=== PATIENT | male | born 1970 | race Caucasian/White ===

== ENCOUNTER 2017-10-03 16:32 | Emergency (ER) | payer MEDICAID, OTHER ==
[2017-10-03] MEDS: SOD CHLORIDE 0.9% 1,000 ML IV (17:27)
[2017-10-03 17:28] LABS: ADD MAN DIFF? NO
[2017-10-03] MEDS: ONDANSETRON 4 MG INJ IV (17:28)
[2017-10-03 17:29] LABS: BASOPHIL # 0.1 10^3/ul (0.0-0.1); BASOPHILS % 0.4 % (0.0-2.0); HEMATOCRIT 44.6 % (42.0-52.0); LYMPHOCYTES # 1.5 10^3/ul (0.8-2.9); LYMPHOCYTES % 10.5 % (15.0-51.0); MEAN CORPUSCULAR HEMOGLOBIN 30.2 pg (29.0-33.0); MEAN CORPUSCULAR HGB CONC 33.6 g/dl (32.0-37.0); MEAN CORPUSCULAR VOLUME 89.9 fl (82.0-101.0); MEAN PLATELET VOLUME 11.2 fl (7.4-10.4); MONOCYTE # 0.5 10^3/ul (0.3-0.9); MONOCYTES % 3.6 % (0.0-11.0); NEUTROPHIL # 11.8 10^3/ul (1.6-7.5); NEUTROPHILS % 84.8 % (39.0-77.0); PLATELET COUNT 264 10^3/UL (140-415); RED BLOOD COUNT 4.96 10^6/ul (4.70-6.10); RED CELL DISTRIBUTION WIDTH 12.8 % (11.5-14.5)
[2017-10-03 17:29] LABS: WHITE BLOOD COUNT 13.8 10^3/ul (4.8-10.8)
[2017-10-03 17:50] LABS: INR 0.89; PROTIME 12.1 Sec (11.9-14.9); PT RATIO 0.9
[2017-10-03 18:05] LABS: ALANINE AMINOTRANSFERASE 43 IU/L (13-69); ALBUMIN 4.8 g/dl (3.3-4.9); ALBUMIN/GLOBULIN RATIO 1.23; ALKALINE PHOSPHATASE 166 IU/L (42-121); AMYLASE 60 U/L (11-123); ANION GAP 32 (8-16); ASPARTATE AMINO TRANSFERASE 30 IU/L (15-46); BILIRUBIN,INDIRECT 0.4 mg/dl (0-1.1); BILIRUBIN,TOTAL 0.4 mg/dl (0.2-1.3); BLOOD UREA NITROGEN 9 mg/dl (7-20); CALCIUM 8.7 mg/dl (8.4-10.2); CARBON DIOXIDE 11 mmol/L (21-31); CHLORIDE 100 mmol/L (97-110); CREATININE 0.86 mg/dl (0.61-1.24); LIPASE 61 U/L (23-300); POTASSIUM 4.4 mmol/L (3.5-5.1); SODIUM 139 mmol/L (135-144); TOTAL PROTEIN 8.7 g/dl (6.1-8.1)
[2017-10-03 18:11] LABS: GLUCOSE 431 mg/dl (70-220)
[2017-10-03 18:16] LABS: TROPONIN-I < 0.012 ng/ml (0.00-0.12)
[2017-10-03] MEDS: IOHEXOL 300MG/ML 150 ML BTL (18:16)
[2017-10-03] MEDS: SOD CHLORIDE 0.9% 100 ML (18:16)
[2017-10-03 19:15] LABS: ADD UMIC NO; UR ASCORBIC ACID NEGATIVE (NEGATIVE); UR BILIRUBIN (Dip) NEGATIVE (NEGATIVE); UR BLOOD (Dip) NEGATIVE (NEGATIVE); UR CLARITY CLEAR (CLEAR); UR COLOR COLORLESS (YELLOW); UR GLUCOSE (Dip) 3+ mg/dL (NEGATIVE); UR KETONES (Dip) 2+ mg/dL (NEGATIVE); UR LEUKOCYTE ESTERASE (Dip) NEGATIVE Leu/ul (NEGATIVE); UR NITRITE (Dip) NEGATIVE (NEGATIVE); UR SPECIFIC GRAVITY (Dip) 1.056 (1.003-1.030); UR TOTAL PROTEIN (Dip) NEGATIVE (NEGATIVE); UR UROBILINOGEN (Dip) NEGATIVE (NEGATIVE)
[2017-10-03] MEDS: morphine 4 MG/ML VIAL IV (19:35)
[2017-10-03] MEDS: SOD CHLORIDE 0.9% 500 ML IV (19:54)
[2017-10-03] MEDS: INSULIN REGULAR, HUMAN 100 UNIT/1 ML 3ML VIAL SC (19:54)
== END 2017-10-03 20:42 | disposition home or self-care (01) ==
LOC: FTE 16:32
DX: E11.65 Type 2 diabetes mellitus with hyperglycemia (principal); R11.10 Vomiting, unspecified; Z79.84 Long term (current) use of oral hypoglycemic drugs
CPT/HCPCS: 71046; 74177; 76705; 80053; 81003; 82150; 82962; 83690; 84484; 85025; 85610; 85730; 87400; 93005; 96374; 96375; 99285-25

== ENCOUNTER 2017-10-05 07:48 | Inpatient (IN) | payer MEDICAID ==
[2017-10-05 08:14] LABS: ADD MAN DIFF? NO
[2017-10-05 08:16] LABS: BASOPHIL # 0.2 10^3/ul (0.0-0.1); BASOPHILS % 0.7 % (0.0-2.0); HEMATOCRIT 48.4 % (42.0-52.0); HEMOGLOBIN 15.7 g/dl (14.0-18.0); LYMPHOCYTES # 2.8 10^3/ul (0.8-2.9); LYMPHOCYTES % 12.3 % (15.0-51.0); MEAN CORPUSCULAR HEMOGLOBIN 30.5 pg (29.0-33.0); MEAN CORPUSCULAR HGB CONC 32.4 g/dl (32.0-37.0); MEAN PLATELET VOLUME 11.2 fl (7.4-10.4); MONOCYTE # 1.1 10^3/ul (0.3-0.9); MONOCYTES % 4.9 % (0.0-11.0); NEUTROPHIL # 18.6 10^3/ul (1.6-7.5); NEUTROPHILS % 80.8 % (39.0-77.0); PLATELET COUNT 296 10^3/UL (140-415); RED BLOOD COUNT 5.15 10^6/ul (4.70-6.10); RED CELL DISTRIBUTION WIDTH 12.8 % (11.5-14.5)
[2017-10-05] MEDS: morphine 2 MG INJ IV (08:19)
[2017-10-05] MEDS: ONDANSETRON 4 MG INJ IV (08:19)
[2017-10-05] MEDS: SOD CHLORIDE 0.9% 1,000 ML IV ×3 (08:21→10:42)
[2017-10-05 08:37] LABS: ALANINE AMINOTRANSFERASE 34 IU/L (13-69); ALBUMIN 4.7 g/dl (3.3-4.9); ALBUMIN/GLOBULIN RATIO 1.11; ALKALINE PHOSPHATASE 206 IU/L (42-121); ASPARTATE AMINO TRANSFERASE 23 IU/L (15-46); BILIRUBIN,INDIRECT 0.1 mg/dl (0-1.1); BILIRUBIN,TOTAL 0.1 mg/dl (0.2-1.3); BLOOD UREA NITROGEN 8 mg/dl (7-20); CALCIUM 8.7 mg/dl (8.4-10.2); CHLORIDE 107 mmol/L (97-110); GLUCOSE 348 mg/dl (70-220); LIPASE 153 U/L (23-300); POTASSIUM 4.1 mmol/L (3.5-5.1); SODIUM 140 mmol/L (135-144); TOTAL PROTEIN 8.9 g/dl (6.1-8.1)
[2017-10-05 08:43] LABS: ANION GAP 32 (8-16); CARBON DIOXIDE < 5 mmol/L (21-31)
[2017-10-05 08:51] LABS: TROPONIN-I < 0.012 ng/ml (0.00-0.12)
[2017-10-05] MEDS: NA BICARBONATE 8.4% 50 ML SYG IV ×4 (08:58→15:15)
[2017-10-05] MEDS: POTASSIUM CHLORIDE 40 MEQ in SOD CHLORIDE 0.9% 250 ML IV (09:05)
[2017-10-05] MEDS ORDERED: ACCU-CHEK XX (09:30)
[2017-10-05] MEDS ORDERED: INSULIN HUMAN REGULAR 100 UNIT in SOD CHLORIDE 0.9% 99 ML IV (09:30)
[2017-10-05] MEDS ORDERED: DEXTROSE 50% 50 ML SYRINGE IV ×2 (09:30)
[2017-10-05] MEDS: INSULIN HUMAN REGULAR 100 UNIT in SOD CHLORIDE 0.9% 99 ML IV (09:36)
[2017-10-05 12:03] LABS: PHOSPHORUS 3.1 mg/dl (2.5-4.9)
[2017-10-05 12:03] LABS: Allen Test ACCEPTAB; BLOOD UREA NITROGEN 8 mg/dl (7-20); CALCIUM 7.7 mg/dl (8.4-10.2); CHLORIDE 114 mmol/L (97-110); CREATININE 0.67 mg/dl (0.61-1.24); GLUCOSE 258 mg/dl (70-220); MODE VENT - AC; MetHgb Venous 0.5 %; POTASSIUM 5.1 mmol/L (3.5-5.1); SODIUM 143 mmol/L (135-144); Site Left Radial; Venous COHb 0.5 %; Venous Fraction OxyHgb 96.2 %; Venous Oxygen Sat 97.2 mmHG (55.0-75.0); Venous Total Hemglobin 8.3 g/dl
[2017-10-05 12:08] LABS: ANION GAP 29 (8-16)
[2017-10-05 12:15] LABS: CARBON DIOXIDE < 5 mmol/L (21-31)
[2017-10-05] MEDS: LACTATED RINGER'S 1,000 ML IV (12:30)
[2017-10-05 13:42] LABS: ANION GAP 26 (8-16); BLOOD UREA NITROGEN 8 mg/dl (7-20); CALCIUM 7.5 mg/dl (8.4-10.2); CHLORIDE 113 mmol/L (97-110); CREATININE 0.65 mg/dl (0.61-1.24); GLUCOSE 233 mg/dl (70-220); SODIUM 143 mmol/L (135-144)
[2017-10-05 13:58] LABS: CARBON DIOXIDE 8 mmol/L (21-31)
[2017-10-05] MEDS: POTASSIUM CHLORIDE 100 ML IVPB ×6 (14:30→23:39)
[2017-10-05] MEDS ORDERED: DEXTROSE 5%-LR 1,000 ML IV (14:30)
[2017-10-05] MEDS: DEXTROSE 5%-0.45% NACL 1,000 ML IV (15:17)
[2017-10-05] MEDS: POTASSIUM CHLORIDE 20 MEQ in DEXTROSE 5%-LR 1,000 ML IV ×2 (16:00→22:50)
[2017-10-05 16:11] LABS: TROPONIN-I 0.014 ng/ml (0.00-0.12)
[2017-10-05] MEDS: AZITHROMYCIN 250 MG TAB PO (17:05)
[2017-10-05 18:17] LABS: ANION GAP 19 (8-16); BLOOD UREA NITROGEN 6 mg/dl (7-20); CALCIUM 7.3 mg/dl (8.4-10.2); CARBON DIOXIDE 16 mmol/L (21-31); CHLORIDE 115 mmol/L (97-110); CREATININE 0.61 mg/dl (0.61-1.24); GLUCOSE 137 mg/dl (70-220); SODIUM 147 mmol/L (135-144)
[2017-10-05 18:22] LABS: POTASSIUM 2.6 mmol/L (3.5-5.1)
[2017-10-05] MEDS: ACCU-CHEK XX ×7 (18:44→23:10)
[2017-10-05] MEDS: POTASSIUM CHLORIDE (SR) 20 MEQ TAB PO ×2 (19:01→20:00)
[2017-10-05 21:49] LABS: ANION GAP 14 (8-16); BLOOD UREA NITROGEN 6 mg/dl (7-20); CALCIUM 7.4 mg/dl (8.4-10.2); CARBON DIOXIDE 18 mmol/L (21-31); CHLORIDE 111 mmol/L (97-110); CREATININE 0.62 mg/dl (0.61-1.24); GLUCOSE 176 mg/dl (70-220); SODIUM 140 mmol/L (135-144)
[2017-10-06 01:01] LABS: ANION GAP 10 (8-16); BLOOD UREA NITROGEN 5 mg/dl (7-20); CALCIUM 7.8 mg/dl (8.4-10.2); CARBON DIOXIDE 21 mmol/L (21-31); CHLORIDE 118 mmol/L (97-110); GLUCOSE 146 mg/dl (70-220); POTASSIUM 3.6 mmol/L (3.5-5.1); SODIUM 145 mmol/L (135-144)
[2017-10-06] MEDS: ACCU-CHEK XX ×8 (01:06→06:58)
[2017-10-06] MEDS: INSULIN HUMAN REGULAR 100 UNIT in SOD CHLORIDE 0.9% 99 ML IV (01:48)
[2017-10-06 05:27] LABS: ANION GAP 12 (8-16); BLOOD UREA NITROGEN 5 mg/dl (7-20); CARBON DIOXIDE 20 mmol/L (21-31); CHLORIDE 117 mmol/L (97-110); CREATININE 0.48 mg/dl (0.61-1.24); GLUCOSE 169 mg/dl (70-220); POTASSIUM 3.5 mmol/L (3.5-5.1); SODIUM 145 mmol/L (135-144)
[2017-10-06 05:35] LABS: TROPONIN-I < 0.012 ng/ml (0.00-0.12)
[2017-10-06] MEDS: D5-0.2 NACL + KCL 20 MEQ 1,000 ML IV (06:13)
[2017-10-06 09:59] LABS: ANION GAP 13 (8-16); BLOOD UREA NITROGEN 4 mg/dl (7-20); CALCIUM 7.9 mg/dl (8.4-10.2); CARBON DIOXIDE 21 mmol/L (21-31); CHLORIDE 112 mmol/L (97-110); GLUCOSE 138 mg/dl (70-220); POTASSIUM 3.1 mmol/L (3.5-5.1); SODIUM 143 mmol/L (135-144)
[2017-10-06] MEDS: POTASSIUM CHLORIDE 100 ML IVPB ×3 (11:08→12:30)
[2017-10-06] MEDS ORDERED: GLUCAGON 1 MG INJ IM (11:30)
[2017-10-06] MEDS ORDERED: DEXTROSE 50% 50 ML SYRINGE IV ×2 (11:30)
[2017-10-06] MEDS ORDERED: GLUCOSE GEL 15 GRAM TUBE PO ×2 (11:30)
[2017-10-06] MEDS ORDERED: GLUCOSE GEL 15 GRAM TUBE BUCCAL (11:30)
[2017-10-06] MEDS: INSULIN GLARGINE [LANtus] 3 ML PEN SC (12:32)
[2017-10-06] MEDS: INSULIN ASPART [NOVOLOG] 3 ML PEN SC ×5 (12:33→20:34)
[2017-10-06 13:31] LABS: ANION GAP 12 (8-16); BLOOD UREA NITROGEN 4 mg/dl (7-20); CALCIUM 7.8 mg/dl (8.4-10.2); CARBON DIOXIDE 22 mmol/L (21-31); CHLORIDE 109 mmol/L (97-110); CREATININE 0.56 mg/dl (0.61-1.24); GLUCOSE 122 mg/dl (70-220); POTASSIUM 3.1 mmol/L (3.5-5.1); SODIUM 140 mmol/L (135-144)
[2017-10-06] MEDS: POTASSIUM CHLORIDE (SR) 20 MEQ TAB PO ×2 (16:29→21:38)
[2017-10-06] MEDS: AZITHROMYCIN 250 MG TAB PO (17:24)
[2017-10-06 19:01] LABS: ANION GAP 10 (8-16); BLOOD UREA NITROGEN 4 mg/dl (7-20); CALCIUM 8.3 mg/dl (8.4-10.2); CARBON DIOXIDE 24 mmol/L (21-31); CHLORIDE 108 mmol/L (97-110); CREATININE 0.48 mg/dl (0.61-1.24); GLUCOSE 97 mg/dl (70-220); POTASSIUM 3.2 mmol/L (3.5-5.1); SODIUM 139 mmol/L (135-144)
[2017-10-06 21:12] LABS: ANION GAP 12 (8-16); BLOOD UREA NITROGEN 5 mg/dl (7-20); CALCIUM 8.1 mg/dl (8.4-10.2); CARBON DIOXIDE 24 mmol/L (21-31); CHLORIDE 104 mmol/L (97-110); CREATININE 0.49 mg/dl (0.61-1.24); GLUCOSE 75 mg/dl (70-220); SODIUM 137 mmol/L (135-144)
[2017-10-06 21:15] LABS: POTASSIUM 2.9 mmol/L (3.5-5.1)
[2017-10-06 21:40] LABS: MAGNESIUM 1.9 mg/dl (1.7-2.5)
[2017-10-07] MEDS: ACETAMINOPHEN 325 MG TAB PO ×2 (00:45→21:40)
[2017-10-07 01:25] LABS: ANION GAP 10 (8-16); BLOOD UREA NITROGEN 4 mg/dl (7-20); CALCIUM 8.4 mg/dl (8.4-10.2); CARBON DIOXIDE 26 mmol/L (21-31); CHLORIDE 104 mmol/L (97-110); CREATININE 0.54 mg/dl (0.61-1.24); GLUCOSE 145 mg/dl (70-220); POTASSIUM 3.5 mmol/L (3.5-5.1); SODIUM 136 mmol/L (135-144)
[2017-10-07] MEDS: ACCU-CHEK XX ×3 (02:00→21:00)
[2017-10-07 07:32] LABS: ANION GAP 12 (8-16); BLOOD UREA NITROGEN 4 mg/dl (7-20); CARBON DIOXIDE 23 mmol/L (21-31); CHLORIDE 103 mmol/L (97-110); CREATININE 0.49 mg/dl (0.61-1.24); GLUCOSE 195 mg/dl (70-220); POTASSIUM 3.4 mmol/L (3.5-5.1); SODIUM 135 mmol/L (135-144)
[2017-10-07] MEDS: INSULIN ASPART [NOVOLOG] 3 ML PEN SC ×7 (08:14→20:37)
[2017-10-07] MEDS: INSULIN GLARGINE [LANtus] 3 ML PEN SC (08:15)
[2017-10-07 09:38] LABS: ANION GAP 15 (8-16); BLOOD UREA NITROGEN 4 mg/dl (7-20); CALCIUM 8.4 mg/dl (8.4-10.2); CARBON DIOXIDE 24 mmol/L (21-31); CHLORIDE 101 mmol/L (97-110); CREATININE 0.56 mg/dl (0.61-1.24); GLUCOSE 226 mg/dl (70-220); POTASSIUM 3.5 mmol/L (3.5-5.1); SODIUM 136 mmol/L (135-144)
[2017-10-07] MEDS: POTASSIUM CHLORIDE (SR) 20 MEQ TAB PO (11:18)
[2017-10-07] MEDS: ONDANSETRON 4 MG INJ IV (11:18)
[2017-10-07 14:10] LABS: ANION GAP 10 (8-16); BLOOD UREA NITROGEN 7 mg/dl (7-20); CALCIUM 8.3 mg/dl (8.4-10.2); CARBON DIOXIDE 27 mmol/L (21-31); CHLORIDE 103 mmol/L (97-110); CREATININE 0.63 mg/dl (0.61-1.24); GLUCOSE 187 mg/dl (70-220); POTASSIUM 3.9 mmol/L (3.5-5.1); SODIUM 136 mmol/L (135-144)
[2017-10-07] MEDS: AZITHROMYCIN 250 MG TAB PO (17:32)
[2017-10-07 19:09] LABS: ANION GAP 13 (8-16); BLOOD UREA NITROGEN 10 mg/dl (7-20); CALCIUM 8.3 mg/dl (8.4-10.2); CARBON DIOXIDE 25 mmol/L (21-31); CHLORIDE 99 mmol/L (97-110); CREATININE 0.65 mg/dl (0.61-1.24); GLUCOSE 196 mg/dl (70-220); POTASSIUM 3.8 mmol/L (3.5-5.1); SODIUM 133 mmol/L (135-144)
[2017-10-08 00:20] LABS: ANION GAP 10 (8-16); BLOOD UREA NITROGEN 12 mg/dl (7-20); CALCIUM 8.4 mg/dl (8.4-10.2); CARBON DIOXIDE 28 mmol/L (21-31); CHLORIDE 101 mmol/L (97-110); CREATININE 0.65 mg/dl (0.61-1.24); GLUCOSE 208 mg/dl (70-220); SODIUM 135 mmol/L (135-144)
[2017-10-08 05:19] LABS: ADD MAN DIFF? NO
[2017-10-08 05:21] LABS: BASOPHILS % 0.5 % (0.0-2.0); EOSINOPHILS % 0.5 % (0.0-7.0); HEMATOCRIT 35.4 % (42.0-52.0); HEMOGLOBIN 12.6 g/dl (14.0-18.0); LYMPHOCYTES % 33.8 % (15.0-51.0); MEAN CORPUSCULAR HEMOGLOBIN 30.7 pg (29.0-33.0); MEAN CORPUSCULAR HGB CONC 35.6 g/dl (32.0-37.0); MEAN CORPUSCULAR VOLUME 86.1 fl (82.0-101.0); MEAN PLATELET VOLUME 11.1 fl (7.4-10.4); MONOCYTE # 0.3 10^3/ul (0.3-0.9); MONOCYTES % 5.3 % (0.0-11.0); NEUTROPHIL # 3.6 10^3/ul (1.6-7.5); NEUTROPHILS % 59.4 % (39.0-77.0); PLATELET COUNT 192 10^3/UL (140-415); RED BLOOD COUNT 4.11 10^6/ul (4.70-6.10); RED CELL DISTRIBUTION WIDTH 12.5 % (11.5-14.5)
[2017-10-08 05:48] LABS: ALANINE AMINOTRANSFERASE 28 IU/L (13-69); ALKALINE PHOSPHATASE 97 IU/L (42-121); ANION GAP 11 (8-16); ASPARTATE AMINO TRANSFERASE 11 IU/L (15-46); BILIRUBIN,INDIRECT 0.3 mg/dl (0-1.1); BILIRUBIN,TOTAL 0.3 mg/dl (0.2-1.3); BLOOD UREA NITROGEN 9 mg/dl (7-20); CALCIUM 8.4 mg/dl (8.4-10.2); CARBON DIOXIDE 27 mmol/L (21-31); CHLORIDE 105 mmol/L (97-110); GLUCOSE 165 mg/dl (70-220); POTASSIUM 3.6 mmol/L (3.5-5.1); SODIUM 139 mmol/L (135-144); TOTAL PROTEIN 6.3 g/dl (6.1-8.1)
[2017-10-08] MEDS: ACCU-CHEK XX ×2 (07:30→11:30)
[2017-10-08] MEDS: INSULIN ASPART [NOVOLOG] 3 ML PEN SC ×4 (08:07→11:56)
[2017-10-08] MEDS: INSULIN GLARGINE [LANtus] 3 ML PEN SC (08:08)
[2017-10-08] MEDS ORDERED: INSULIN ASPART [NOVOLOG] 3 ML PEN SC (17:35)
[2017-10-09] MEDS ORDERED: INSULIN GLARGINE [LANtus] 3 ML PEN SC (08:00)
== END 2017-10-08 16:38 | disposition home or self-care (01) | DRG 639 ==
LOC: PP2 10-06 19:22 → E/R 07:48 → ICU 09:13
DX: E11.10 Type 2 diabetes mellitus with ketoacidosis without coma (principal); E87.6 Hypokalemia; K04.7 Periapical abscess without sinus; Z79.84 Long term (current) use of oral hypoglycemic drugs
CPT/HCPCS: 36415; 70450; 71045; 80048; 80053; 82803; 82962; 83036; 83690; 83735; 84100; 84484; 85025; 87040; 87081; 93005; 93306; 96374; 96375; 96376; 99291-25

== ENCOUNTER 2018-03-11 03:44 | Emergency (ER) | payer MEDICAID ==
[2018-03-11] MEDS: DIPHENHYDRAMINE 50 MG INJ IM (04:05)
[2018-03-11] MEDS: DEXAMETHASONE 10 MG/ML 1 ML INJ IM (04:05)
[2018-03-11] MEDS: FAMOTIDINE 20 MG TAB PO (04:05)
== END 2018-03-11 04:23 | disposition home or self-care (01) ==
LOC: FTE 03:44
DX: B86 Scabies (principal); E11.9 Type 2 diabetes mellitus without complications; L50.9 Urticaria, unspecified; Z79.4 Long term (current) use of insulin
CPT/HCPCS: 96372; 99284-25

== ENCOUNTER 2018-03-21 22:28 | Emergency (ER) | payer MEDICAID | END 2018-03-21 23:18 | disposition home or self-care (01) | LOC: FTE 22:28 | DX: J20.9 Acute bronchitis, unspecified (principal); R21 Rash and other nonspecific skin eruption; E11.9 Type 2 diabetes mellitus without complications; Z79.4 Long term (current) use of insulin | CPT/HCPCS: 99283; Z7502 ==

== ENCOUNTER 2018-05-20 19:13 | Inpatient (IN) | payer MEDICAID ==
[2018-05-20 19:39] LABS: ADD MAN DIFF? NO
[2018-05-20 19:41] LABS: BASOPHIL # 0.1 10^3/ul (0.0-0.1); BASOPHILS % 0.8 % (0.0-2.0); EOSINOPHILS % 0.1 % (0.0-7.0); HEMATOCRIT 44.3 % (42.0-52.0); HEMOGLOBIN 14.8 g/dl (14.0-18.0); LYMPHOCYTES # 1.6 10^3/ul (0.8-2.9); LYMPHOCYTES % 22.2 % (15.0-51.0); MEAN CORPUSCULAR HEMOGLOBIN 29.4 pg (29.0-33.0); MEAN CORPUSCULAR HGB CONC 33.4 g/dl (32.0-37.0); MEAN CORPUSCULAR VOLUME 88.1 fl (82.0-101.0); MEAN PLATELET VOLUME 11.3 fl (7.4-10.4); MONOCYTE # 0.3 10^3/ul (0.3-0.9); MONOCYTES % 4.2 % (0.0-11.0); NEUTROPHIL # 5.2 10^3/ul (1.6-7.5); NEUTROPHILS % 72.3 % (39.0-77.0); PLATELET COUNT 218 10^3/UL (140-415); RED BLOOD COUNT 5.03 10^6/ul (4.70-6.10); RED CELL DISTRIBUTION WIDTH 12.6 % (11.5-14.5)
[2018-05-20 19:41] LABS: WHITE BLOOD COUNT 7.2 10^3/ul (4.8-10.8)
[2018-05-20] MEDS: ONDANSETRON 4 MG INJ IV (19:44)
[2018-05-20] MEDS: SOD CHLORIDE 0.9% 600 ML IV (19:44)
[2018-05-20 19:54] LABS: ADD UMIC YES; UR ASCORBIC ACID NEGATIVE (NEGATIVE); UR BILIRUBIN (Dip) NEGATIVE (NEGATIVE); UR BLOOD (Dip) NEGATIVE (NEGATIVE); UR CLARITY CLEAR (CLEAR); UR COLOR STRAW (YELLOW); UR GLUCOSE (Dip) 3+ mg/dL (NEGATIVE); UR KETONES (Dip) 2+ mg/dL (NEGATIVE); UR LEUKOCYTE ESTERASE (Dip) NEGATIVE Leu/ul (NEGATIVE); UR NITRITE (Dip) NEGATIVE (NEGATIVE); UR RBC 0 /HPF (0-5); UR SPECIFIC GRAVITY (Dip) 1.033 (1.003-1.030); UR TOTAL PROTEIN (Dip) 1+ mg/dl (NEGATIVE); UR UROBILINOGEN (Dip) NEGATIVE (NEGATIVE); UR WBC 0 /HPF (0-5)
[2018-05-20 19:58] LABS: ANION GAP 20 (5-13); BLOOD UREA NITROGEN 11 mg/dl (7-20); CALCIUM 8.5 mg/dl (8.4-10.2); CHLORIDE 106 mmol/L (97-110); CREATININE 0.85 mg/dl (0.61-1.24); Estimated GFR > 60 mL/min (>60); GLUCOSE 291 mg/dl (70-220); MAGNESIUM 2.3 mg/dl (1.7-2.5); PHOSPHORUS 2.8 mg/dl (2.5-4.9); SODIUM 136 mmol/L (135-144)
[2018-05-20 20:26] LABS: CARBON DIOXIDE 10 mmol/L (21-31)
[2018-05-20] MEDS ORDERED: SOD CHLORIDE 0.9% 1,000 ML IV (20:36)
[2018-05-20] MEDS ORDERED: POTASSIUM CHLORIDE 40 MEQ in SOD CHLORIDE 0.9% 1,000 ML IV (20:36)
[2018-05-20] MEDS ORDERED: SODIUM CHLORIDE 23.4% 77 MEQ in DEXTROSE 10% 1,000 ML IV (20:36)
[2018-05-20 20:59] LABS: MODE ROOM AIR; MetHgb Venous 0.1 %; Sample Type Blood venous; Site VENOUS LINE; Venous COHb 0.6 %; Venous Fraction OxyHgb 68.1 %; Venous Oxygen Sat 68.6 mmHG (55.0-75.0); Venous Total Hemglobin 14.6 g/dl
[2018-05-20] MEDS ORDERED: DEXTROSE 50% 50 ML SYRINGE IV ×2 (21:00)
[2018-05-20] MEDS ORDERED: HEPARIN 5,000 UNIT/0.5 ML VIAL (21:29)
[2018-05-20] MEDS ORDERED: BISACODYL (EC) 5 MG TAB PO (21:30)
[2018-05-20] MEDS ORDERED: IPRATROPIUM (NEB) 0.5 MG/2.5 ML AMP NEB (21:30)
[2018-05-20] MEDS ORDERED: ALBUTEROL 0.083% (NEB) 2.5 MG/3 ML AMP NEB (21:30)
[2018-05-20] MEDS ORDERED: morphine 2 MG INJ IV (21:30)
[2018-05-20] MEDS ORDERED: DOCUSATE SODIUM 100 MG CAP PO (21:30)
[2018-05-20] MEDS: morphine 4 MG/ML VIAL IV (21:31)
[2018-05-20] MEDS: LACTATED RINGER'S 600 ML IV (21:31)
[2018-05-20] MEDS: HEPARIN 5,000 UNIT/1 ML VIAL SC (21:32)
[2018-05-20 22:03] LABS: MODE ROOM AIR; MetHgb Venous 0.1 %; Sample Type Blood venous; Site VENOUS LINE; Venous COHb 0.7 %; Venous Fraction OxyHgb 64.2 %; Venous Oxygen Sat 64.7 mmHG (55.0-75.0); Venous Total Hemglobin 14.6 g/dl
[2018-05-20] MEDS: SODIUM CHLORIDE 23.4% 77 MEQ, POTASSIUM CHLORIDE 30 MEQ in DEXTROSE 10% 1,000 ML IV (22:09)
[2018-05-20] MEDS: INSULIN REGULAR, HUMAN 100 UNIT in SOD CHLORIDE 0.9% 99 ML IV (22:10)
[2018-05-20 22:30] LABS: ANION GAP 19 (5-13); BLOOD UREA NITROGEN 10 mg/dl (7-20); CALCIUM 7.9 mg/dl (8.4-10.2); CARBON DIOXIDE 11 mmol/L (21-31); CHLORIDE 109 mmol/L (97-110); CREATININE 0.69 mg/dl (0.61-1.24); Estimated GFR > 60 mL/min (>60); GLUCOSE 152 mg/dl (70-220); MAGNESIUM 2.2 mg/dl (1.7-2.5); PHOSPHORUS 2.4 mg/dl (2.5-4.9); SODIUM 139 mmol/L (135-144)
[2018-05-20 23:24] LABS: HEMOGLOBIN A1C 11.2 % (0-5.9)
[2018-05-21 00:13] LABS: ETHANOL < 10.0 mg/dl (0-0)
[2018-05-21 02:07] LABS: MODE ROOM AIR; MetHgb Venous 0.1 %; Sample Type Blood venous; Site VENOUS LINE; Venous COHb 0.7 %; Venous Fraction OxyHgb 74.3 %; Venous Oxygen Sat 74.9 mmHG (55.0-75.0); Venous Total Hemglobin 12.9 g/dl
[2018-05-21 02:10] LABS: ANION GAP 15 (5-13); BLOOD UREA NITROGEN 10 mg/dl (7-20); CALCIUM 7.9 mg/dl (8.4-10.2); CARBON DIOXIDE 14 mmol/L (21-31); CHLORIDE 109 mmol/L (97-110); CREATININE 0.62 mg/dl (0.61-1.24); Estimated GFR > 60 mL/min (>60); GLUCOSE 147 mg/dl (70-220); PHOSPHORUS 1.1 mg/dl (2.5-4.9); POTASSIUM 3.2 mmol/L (3.5-5.1); SODIUM 138 mmol/L (135-144)
[2018-05-21] MEDS: POTASSIUM CHLORIDE 30 MEQ in SOD CHLORIDE 0.9% 1,000 ML IV (02:22)
[2018-05-21] MEDS: SODIUM CHLORIDE 23.4% 77 MEQ, POTASSIUM CHLORIDE 40 MEQ in DEXTROSE 10% 1,000 ML IV (03:00)
[2018-05-21] MEDS: SODIUM PHOSPHATE 20 MEQ in SOD CHLORIDE 0.9% 250 ML IVPB (03:27)
[2018-05-21 05:01] LABS: ADD MAN DIFF? NO
[2018-05-21 05:03] LABS: BASOPHILS % 0.8 % (0.0-2.0); EOSINOPHILS # 0.1 10^3/ul (0.0-0.5); EOSINOPHILS % 1.2 % (0.0-7.0); HEMATOCRIT 34.9 % (42.0-52.0); HEMOGLOBIN 12.1 g/dl (14.0-18.0); LYMPHOCYTES # 1.9 10^3/ul (0.8-2.9); LYMPHOCYTES % 37.7 % (15.0-51.0); MEAN CORPUSCULAR HEMOGLOBIN 29.9 pg (29.0-33.0); MEAN CORPUSCULAR HGB CONC 34.7 g/dl (32.0-37.0); MEAN CORPUSCULAR VOLUME 86.2 fl (82.0-101.0); MEAN PLATELET VOLUME 11.4 fl (7.4-10.4); MONOCYTE # 0.3 10^3/ul (0.3-0.9); MONOCYTES % 6.7 % (0.0-11.0); NEUTROPHIL # 2.6 10^3/ul (1.6-7.5); PLATELET COUNT 178 10^3/UL (140-415); RED BLOOD COUNT 4.05 10^6/ul (4.70-6.10); RED CELL DISTRIBUTION WIDTH 12.3 % (11.5-14.5)
[2018-05-21 05:03] LABS: WHITE BLOOD COUNT 4.9 10^3/ul (4.8-10.8)
[2018-05-21 05:38] LABS: MODE ROOM AIR; MetHgb Venous 0.1 %; Sample Type Blood venous; Site VENOUS LINE; Venous COHb 1.4 %; Venous Oxygen Sat 70.1 mmHG (55.0-75.0); Venous Total Hemglobin 12.8 g/dl
[2018-05-21 05:39] LABS: ANION GAP 10 (5-13); BLOOD UREA NITROGEN 8 mg/dl (7-20); CALCIUM 7.6 mg/dl (8.4-10.2); CARBON DIOXIDE 18 mmol/L (21-31); CHLORIDE 110 mmol/L (97-110); CREATININE 0.54 mg/dl (0.61-1.24); Estimated GFR > 60 mL/min (>60); GLUCOSE 147 mg/dl (70-220); PHOSPHORUS 1.6 mg/dl (2.5-4.9); POTASSIUM 3.3 mmol/L (3.5-5.1); SODIUM 138 mmol/L (135-144)
[2018-05-21] MEDS ORDERED: HEPARIN 5,000 UNIT/0.5 ML VIAL ×3 (06:18→20:27)
[2018-05-21] MEDS: PANTOPRAZOLE 40 MG INJ IV (06:30)
[2018-05-21] MEDS: HEPARIN 5,000 UNIT/1 ML VIAL SC ×3 (06:33→21:20)
[2018-05-21] MEDS: SODIUM CHLORIDE 23.4% 77 MEQ, POTASSIUM CHLORIDE 30 MEQ in DEXTROSE 10% 1,000 ML IV (07:45)
[2018-05-21 08:49] LABS: ANION GAP 7 (5-13); BLOOD UREA NITROGEN 6 mg/dl (7-20); CALCIUM 7.3 mg/dl (8.4-10.2); CARBON DIOXIDE 20 mmol/L (21-31); CHLORIDE 113 mmol/L (97-110); CREATININE 0.48 mg/dl (0.61-1.24); Estimated GFR > 60 mL/min (>60); GLUCOSE 134 mg/dl (70-220); POTASSIUM 3.4 mmol/L (3.5-5.1); SODIUM 140 mmol/L (135-144)
[2018-05-21] MEDS: ONDANSETRON 4 MG INJ IV (09:36)
[2018-05-21] MEDS: INSULIN GLARGINE [LANTus] (100 UNITS/ML) SYG SC (10:05)
[2018-05-21] MEDS: INSULIN ASPART [NOVOLOG] 3 ML PEN SC ×5 (12:19→21:00)
[2018-05-21] MEDS ORDERED: traMADol 50 MG TAB PO (16:00)
[2018-05-21] MEDS ORDERED: ALBUTEROL 0.083% (NEB) 2.5 MG/3 ML AMP HHN (16:00)
[2018-05-21] MEDS ORDERED: hydrOXYzine HCL 50 MG TAB PO (16:00)
[2018-05-21] MEDS: LORATADINE 10 MG TAB PO (17:19)
[2018-05-21] MEDS ORDERED: hydrOXYzine HCL 25 MG TAB PO (18:08)
[2018-05-21] MEDS: EUCERIN 113 GM CR TOP (21:13)
[2018-05-22] MEDS: ACETAMINOPHEN 650MG/20.3ML CUP PO (04:42)
[2018-05-22] MEDS ORDERED: HEPARIN 5,000 UNIT/0.5 ML VIAL ×2 (04:48→13:08)
[2018-05-22] MEDS: HEPARIN 5,000 UNIT/1 ML VIAL SC ×3 (05:58→21:09)
[2018-05-22 06:46] LABS: ADD MAN DIFF? NO
[2018-05-22 06:48] LABS: WHITE BLOOD COUNT 6.3 10^3/ul (4.8-10.8)
[2018-05-22 06:48] LABS: BASOPHILS % 0.6 % (0.0-2.0); EOSINOPHILS % 0.6 % (0.0-7.0); HEMATOCRIT 38.1 % (42.0-52.0); HEMOGLOBIN 13.5 g/dl (14.0-18.0); LYMPHOCYTES # 2.3 10^3/ul (0.8-2.9); MEAN CORPUSCULAR HEMOGLOBIN 29.6 pg (29.0-33.0); MEAN CORPUSCULAR HGB CONC 35.4 g/dl (32.0-37.0); MEAN CORPUSCULAR VOLUME 83.6 fl (82.0-101.0); MEAN PLATELET VOLUME 11.7 fl (7.4-10.4); MONOCYTE # 0.3 10^3/ul (0.3-0.9); MONOCYTES % 4.9 % (0.0-11.0); NEUTROPHIL # 3.6 10^3/ul (1.6-7.5); NEUTROPHILS % 57.6 % (39.0-77.0); PLATELET COUNT 176 10^3/UL (140-415); RED BLOOD COUNT 4.56 10^6/ul (4.70-6.10); RED CELL DISTRIBUTION WIDTH 12.5 % (11.5-14.5)
[2018-05-22 07:08] LABS: ALBUMIN 3.6 g/dl (3.3-4.9); ANION GAP 15 (5-13); BLOOD UREA NITROGEN 9 mg/dl (7-20); CALCIUM 8.5 mg/dl (8.4-10.2); CARBON DIOXIDE 19 mmol/L (21-31); CHLORIDE 102 mmol/L (97-110); CREATININE 0.67 mg/dl (0.61-1.24); GLUCOSE 141 mg/dl (70-220); PHOSPHORUS 2.9 mg/dl (2.5-4.9); SODIUM 136 mmol/L (135-144)
[2018-05-22 07:33] LABS: POTASSIUM 2.9 mmol/L (3.5-5.1)
[2018-05-22] MEDS: INSULIN ASPART [NOVOLOG] 3 ML PEN SC ×7 (08:00→21:10)
[2018-05-22] MEDS: LORATADINE 10 MG TAB PO (08:21)
[2018-05-22] MEDS: FAMOTIDINE 20 MG TAB PO (08:22)
[2018-05-22] MEDS: EUCERIN 113 GM CR TOP ×2 (08:22→21:06)
[2018-05-22] MEDS: INSULIN GLARGINE [LANTus] (100 UNITS/ML) SYG SC (08:23)
[2018-05-22 09:33] LABS: AMPHETAMINE/METHAMPHETAMINE Negative (NEGATIVE); BARBITURATES Negative (NEGATIVE); BENZODIAZEPINES Negative (NEGATIVE); CANNABINOIDS Negative (NEGATIVE); COCAINE Negative (NEGATIVE); OPIATES Negative (NEGATIVE)
[2018-05-22] MEDS: POTASSIUM CHLORIDE 100 ML IVPB ×4 (10:44→17:24)
[2018-05-22] MEDS ORDERED: morphine LIQ (10 MG/5 ML) CUP PO (22:30)
[2018-05-23 05:53] LABS: ADD MAN DIFF? NO
[2018-05-23 05:57] LABS: WHITE BLOOD COUNT 7.1 10^3/ul (4.8-10.8)
[2018-05-23 05:57] LABS: BASOPHILS % 0.3 % (0.0-2.0); EOSINOPHILS # 0.1 10^3/ul (0.0-0.5); EOSINOPHILS % 1.1 % (0.0-7.0); HEMATOCRIT 38.4 % (42.0-52.0); HEMOGLOBIN 13.6 g/dl (14.0-18.0); LYMPHOCYTES # 2.4 10^3/ul (0.8-2.9); LYMPHOCYTES % 33.7 % (15.0-51.0); MEAN CORPUSCULAR HEMOGLOBIN 29.4 pg (29.0-33.0); MEAN CORPUSCULAR HGB CONC 35.4 g/dl (32.0-37.0); MEAN CORPUSCULAR VOLUME 83.1 fl (82.0-101.0); MEAN PLATELET VOLUME 11.8 fl (7.4-10.4); MONOCYTE # 0.4 10^3/ul (0.3-0.9); MONOCYTES % 5.6 % (0.0-11.0); NEUTROPHIL # 4.2 10^3/ul (1.6-7.5); NEUTROPHILS % 59.2 % (39.0-77.0); PLATELET COUNT 172 10^3/UL (140-415); RED BLOOD COUNT 4.62 10^6/ul (4.70-6.10); RED CELL DISTRIBUTION WIDTH 12.1 % (11.5-14.5)
[2018-05-23] MEDS: HEPARIN 5,000 UNIT/1 ML VIAL SC ×2 (06:02→13:55)
[2018-05-23 07:26] LABS: ANION GAP 13 (5-13); BLOOD UREA NITROGEN 13 mg/dl (7-20); CALCIUM 9.1 mg/dl (8.4-10.2); CARBON DIOXIDE 24 mmol/L (21-31); CHLORIDE 100 mmol/L (97-110); CREATININE 0.49 mg/dl (0.61-1.24); Estimated GFR > 60 mL/min (>60); GLUCOSE 100 mg/dl (70-220); PHOSPHORUS 3.6 mg/dl (2.5-4.9); SODIUM 137 mmol/L (135-144)
[2018-05-23] MEDS: INSULIN GLARGINE [LANTus] (100 UNITS/ML) SYG SC (08:23)
[2018-05-23] MEDS: INSULIN ASPART [NOVOLOG] 3 ML PEN SC ×4 (08:24→12:53)
[2018-05-23] MEDS: LORATADINE 10 MG TAB PO (08:26)
[2018-05-23] MEDS: LINAGLIPTIN 5 MG TABLET PO (08:26)
[2018-05-23] MEDS: FAMOTIDINE 20 MG TAB PO (08:26)
[2018-05-23] MEDS: EUCERIN 113 GM CR TOP (08:26)
[2018-05-23] MEDS: POTASSIUM CHLORIDE (SR) 20 MEQ TAB PO ×2 (11:48→13:56)
== END 2018-05-23 14:35 | disposition home or self-care (01) | DRG 639 ==
LOC: 2NE 05-21 18:15 → E/R 19:13 → ICU 21:11
PROC: 4A133R1 Monitoring of Arterial Saturation, Peripheral, Percutaneous Approach (ICD-10-PCS; principal; 2018-05-20)
DX: E11.10 Type 2 diabetes mellitus with ketoacidosis without coma (principal); Z79.4 Long term (current) use of insulin; Z72.89 Other problems related to lifestyle
CPT/HCPCS: 36415; 71045; 80048; 80069; 80307; 81001; 82803; 82962; 83036; 83735; 84100; 85025; 87081; 96374; 99291-25

== ENCOUNTER 2018-09-27 00:43 | Emergency (ER) | payer MEDICAID ==
[2018-09-27 03:14] LABS: ADD MAN DIFF? NO
[2018-09-27 03:16] LABS: BASOPHILS % 0.4 % (0.0-2.0); EOSINOPHILS # 0.1 10^3/ul (0.0-0.5); EOSINOPHILS % 0.7 % (0.0-7.0); HEMATOCRIT 36.9 % (42.0-52.0); HEMOGLOBIN 12.9 g/dl (14.0-18.0); LYMPHOCYTES # 1.1 10^3/ul (0.8-2.9); LYMPHOCYTES % 10.8 % (15.0-51.0); MEAN CORPUSCULAR HEMOGLOBIN 29.9 pg (29.0-33.0); MEAN CORPUSCULAR VOLUME 85.6 fl (82.0-101.0); MEAN PLATELET VOLUME 11.4 fl (7.4-10.4); MONOCYTE # 0.7 10^3/ul (0.3-0.9); MONOCYTES % 6.9 % (0.0-11.0); NEUTROPHIL # 8.1 10^3/ul (1.6-7.5); NEUTROPHILS % 80.9 % (39.0-77.0); PLATELET COUNT 210 10^3/UL (140-415); RED BLOOD COUNT 4.31 10^6/ul (4.70-6.10)
[2018-09-27] MEDS: HYDROCODONE/APAP (5/325) TAB PO (03:16)
[2018-09-27 03:52] LABS: ALANINE AMINOTRANSFERASE 29 IU/L (13-69); ALBUMIN 3.9 g/dl (3.3-4.9); ALBUMIN/GLOBULIN RATIO 1.25; ALKALINE PHOSPHATASE 235 IU/L (42-121); ANION GAP 15 (5-13); ASPARTATE AMINO TRANSFERASE 11 IU/L (15-46); BILIRUBIN,INDIRECT 0.3 mg/dl (0-1.1); BILIRUBIN,TOTAL 0.3 mg/dl (0.2-1.3); BLOOD UREA NITROGEN 16 mg/dl (7-20); CALCIUM 9.4 mg/dl (8.4-10.2); CARBON DIOXIDE 21 mmol/L (21-31); CHLORIDE 100 mmol/L (97-110); CREATININE 0.75 mg/dl (0.61-1.24); Estimated GFR > 60 mL/min (>60); POTASSIUM 4.3 mmol/L (3.5-5.1); SODIUM 136 mmol/L (135-144)
[2018-09-27 03:54] LABS: ADD UMIC NO; UR ASCORBIC ACID NEGATIVE (NEGATIVE); UR BILIRUBIN (Dip) NEGATIVE (NEGATIVE); UR BLOOD (Dip) NEGATIVE (NEGATIVE); UR CLARITY CLEAR (CLEAR); UR COLOR COLORLESS (YELLOW); UR GLUCOSE (Dip) 3+ mg/dL (NEGATIVE); UR KETONES (Dip) 1+ mg/dL (NEGATIVE); UR LEUKOCYTE ESTERASE (Dip) NEGATIVE Leu/ul (NEGATIVE); UR NITRITE (Dip) NEGATIVE (NEGATIVE); UR SPECIFIC GRAVITY (Dip) 1.028 (1.003-1.030); UR TOTAL PROTEIN (Dip) NEGATIVE (NEGATIVE); UR UROBILINOGEN (Dip) NEGATIVE (NEGATIVE)
[2018-09-27 03:57] LABS: GLUCOSE 593 mg/dl (70-220)
[2018-09-27] MEDS: SOD CHLORIDE 0.9% 1,000 ML IV ×2 (04:07→05:21)
[2018-09-27] MEDS: INSULIN LISPRO 100 UNIT/ML VIAL SC (04:56)
== END 2018-09-27 07:02 | disposition home or self-care (01) ==
LOC: FTE 00:43
DX: L02.415 Cutaneous abscess of right lower limb (principal); E11.65 Type 2 diabetes mellitus with hyperglycemia; Z79.4 Long term (current) use of insulin
CPT/HCPCS: 36415; 76536; 80053; 81003; 82962; 85025; 96360; 96361; 96372; 99285-25

== ENCOUNTER 2018-09-30 02:30 | Emergency (ER) | payer MEDICAID ==
[2018-09-30] MEDS: LIDOCAINE 1% (MPF) 5 ML VIAL INFIL (03:56)
== END 2018-09-30 04:51 | disposition home or self-care (01) ==
LOC: FTE 02:30
DX: L02.415 Cutaneous abscess of right lower limb (principal); E11.9 Type 2 diabetes mellitus without complications; Z79.4 Long term (current) use of insulin
CPT/HCPCS: 10060; 99282-25

== ENCOUNTER 2018-10-01 13:35 | Emergency (ER) | payer MEDICAID ==
[2018-10-01] MEDS: LIDOCAINE 1% (MDV) 20 ML INJ SC (15:16)
[2018-10-01] MEDS: LIDOCAINE 1% (MPF) 5 ML VIAL INJ (16:31)
[2018-10-01] MEDS: CEFTRIAXONE 1 GM INJ IM (16:31)
== END 2018-10-01 17:53 | disposition home or self-care (01) ==
LOC: FTE 13:35
DX: L02.214 Cutaneous abscess of groin (principal); Z48.01 Encounter for change or removal of surgical wound dressing
CPT/HCPCS: 10060; 96372; 99284-25

== ENCOUNTER 2018-10-03 07:21 | Emergency (ER) | payer MEDICAID | END 2018-10-03 08:13 | disposition home or self-care (01) | LOC: FTE 07:21 | DX: Z48.01 Encounter for change or removal of surgical wound dressing (principal); E11.9 Type 2 diabetes mellitus without complications; Z79.4 Long term (current) use of insulin | CPT/HCPCS: 99281; Z7502 ==

== ENCOUNTER 2018-10-07 15:37 | Emergency (ER) | payer MEDICAID | END 2018-10-07 16:24 | disposition home or self-care (01) | LOC: E/R 15:37 | DX: Z48.01 Encounter for change or removal of surgical wound dressing (principal); E11.9 Type 2 diabetes mellitus without complications; Z79.4 Long term (current) use of insulin | CPT/HCPCS: 99281; Z7502 ==

== ENCOUNTER 2018-12-11 21:51 | Inpatient (IN) | payer MEDICAID ==
[2018-12-12 00:11] LABS: ADD MAN DIFF? NO
[2018-12-12 00:16] LABS: WHITE BLOOD COUNT 12.2 10^3/ul (4.8-10.8)
[2018-12-12 00:16] LABS: BASOPHIL # 0.1 10^3/ul (0.0-0.1); BASOPHILS % 0.4 % (0.0-2.0); EOSINOPHILS # 0.1 10^3/ul (0.0-0.5); EOSINOPHILS % 0.7 % (0.0-7.0); HEMATOCRIT 37.2 % (42.0-52.0); LYMPHOCYTES # 0.7 10^3/ul (0.8-2.9); LYMPHOCYTES % 6.1 % (15.0-51.0); MEAN CORPUSCULAR HGB CONC 34.9 g/dl (32.0-37.0); MEAN CORPUSCULAR VOLUME 88.8 fl (82.0-101.0); MEAN PLATELET VOLUME 10.8 fl (7.4-10.4); MONOCYTE # 0.6 10^3/ul (0.3-0.9); MONOCYTES % 5.3 % (0.0-11.0); NEUTROPHIL # 10.6 10^3/ul (1.6-7.5); PLATELET COUNT 296 10^3/UL (140-415); RED BLOOD COUNT 4.19 10^6/ul (4.70-6.10); RED CELL DISTRIBUTION WIDTH 12.6 % (11.5-14.5)
[2018-12-12] MEDS: SOD CHLORIDE 0.9% 500 ML IV (00:23)
[2018-12-12] MEDS: PIPER-TAZO 3.375 GM IV (PMX) 100 ML IVPB (00:25)
[2018-12-12 00:36] LABS: ALANINE AMINOTRANSFERASE 21 IU/L (13-69); ALBUMIN 3.9 g/dl (3.3-4.9); ALBUMIN/GLOBULIN RATIO 1.05; ALKALINE PHOSPHATASE 232 IU/L (42-121); ANION GAP 17 (5-13); ASPARTATE AMINO TRANSFERASE 9 IU/L (15-46); BILIRUBIN,INDIRECT 0.4 mg/dl (0-1.1); BILIRUBIN,TOTAL 0.4 mg/dl (0.2-1.3); BLOOD UREA NITROGEN 14 mg/dl (7-20); CARBON DIOXIDE 15 mmol/L (21-31); CHLORIDE 98 mmol/L (97-110); CREATININE 0.67 mg/dl (0.61-1.24); Estimated GFR > 60 mL/min (>60); LIPASE 123 U/L (23-300); POTASSIUM 4.2 mmol/L (3.5-5.1); SODIUM 130 mmol/L (135-144); TOTAL PROTEIN 7.6 g/dl (6.1-8.1)
[2018-12-12 00:45] LABS: ADD UMIC NO; UR ASCORBIC ACID NEGATIVE (NEGATIVE); UR BILIRUBIN (Dip) NEGATIVE (NEGATIVE); UR BLOOD (Dip) NEGATIVE (NEGATIVE); UR CLARITY CLEAR (CLEAR); UR COLOR COLORLESS (YELLOW); UR GLUCOSE (Dip) 3+ mg/dL (NEGATIVE); UR KETONES (Dip) 1+ mg/dL (NEGATIVE); UR LEUKOCYTE ESTERASE (Dip) NEGATIVE Leu/ul (NEGATIVE); UR NITRITE (Dip) NEGATIVE (NEGATIVE); UR SPECIFIC GRAVITY (Dip) 1.027 (1.003-1.030); UR TOTAL PROTEIN (Dip) NEGATIVE (NEGATIVE); UR UROBILINOGEN (Dip) NEGATIVE (NEGATIVE)
[2018-12-12 00:50] LABS: GLUCOSE 750 mg/dl (70-220)
[2018-12-12] MEDS ORDERED: DEXTROSE 10%/0.45% NACL 1,000 ML IV (01:03)
[2018-12-12] MEDS ORDERED: D10/0.45% NACL + KCL 40 MEQ 1,000 ML IV (01:03)
[2018-12-12] MEDS ORDERED: SOD CHLORIDE 0.9% 1,000 ML IV (01:03)
[2018-12-12] MEDS ORDERED: NS + KCL 40 MEQ 1,000 ML IV (01:03)
[2018-12-12] MEDS: LACTATED RINGER'S 640 ML IV (01:16)
[2018-12-12] MEDS ORDERED: LORAZEPAM 2 MG INJ IV (01:30)
[2018-12-12] MEDS ORDERED: ONDANSETRON 4 MG INJ IV (01:30)
[2018-12-12] MEDS ORDERED: DEXTROSE 50% 50 ML SYRINGE IV ×6 (01:30→08:00)
[2018-12-12] MEDS ORDERED: VANCOMYCIN IV PER PHARMACY XX (01:30)
[2018-12-12] MEDS ORDERED: BISACODYL (EC) 5 MG TAB PO (01:30)
[2018-12-12] MEDS ORDERED: DOCUSATE SODIUM 100 MG CAP PO (01:30)
[2018-12-12] MEDS: FAMOTIDINE 20 MG INJ IV (01:56)
[2018-12-12] MEDS: INSULIN REGULAR, HUMAN 100 UNIT in SOD CHLORIDE 0.9% 100 ML IV (02:50)
[2018-12-12] MEDS: NS + KCL 30 MEQ 1,000 ML IV (02:53)
[2018-12-12 02:55] LABS: AMPHETAMINE/METHAMPHETAMINE Negative (NEGATIVE); BARBITURATES Negative (NEGATIVE); BENZODIAZEPINES Negative (NEGATIVE); CANNABINOIDS Negative (NEGATIVE); COCAINE Negative (NEGATIVE); OPIATES Negative (NEGATIVE)
[2018-12-12 03:01] LABS: ANION GAP 12 (5-13); BLOOD UREA NITROGEN 12 mg/dl (7-20); CALCIUM 8.6 mg/dl (8.4-10.2); CARBON DIOXIDE 17 mmol/L (21-31); CHLORIDE 106 mmol/L (97-110); CREATININE 0.52 mg/dl (0.61-1.24); Estimated GFR > 60 mL/min (>60); PHOSPHORUS 2.8 mg/dl (2.5-4.9); POTASSIUM 3.9 mmol/L (3.5-5.1); SODIUM 135 mmol/L (135-144)
[2018-12-12] MEDS: VANCOMYCIN HCL 1.25 GM in SOD CHLORIDE 0.9% 250 ML IVPB (03:03)
[2018-12-12 03:06] LABS: GLUCOSE 493 mg/dl (70-220)
[2018-12-12 03:10] LABS: ETHANOL < 10.0 mg/dl (0-0)
[2018-12-12 03:23] LABS: HEMOGLOBIN A1C 12.7 % (0-5.9)
[2018-12-12] MEDS ORDERED: hydrOXYzine HCL 50 MG TAB PO (05:00)
[2018-12-12] MEDS: D10/0.45% NACL + KCL 30 MEQ 1,000 ML IV (05:03)
[2018-12-12] MEDS: ALBUTEROL 0.083% (NEB) 2.5 MG/3 ML AMP NEB ×5 (05:11→20:55)
[2018-12-12] MEDS: IPRATROPIUM (NEB) 0.5 MG/2.5 ML AMP NEB ×5 (05:11→20:56)
[2018-12-12 05:24] LABS: ADD MAN DIFF? NO
[2018-12-12 05:29] LABS: WHITE BLOOD COUNT 10.4 10^3/ul (4.8-10.8)
[2018-12-12 05:29] LABS: BASOPHIL # 0.1 10^3/ul (0.0-0.1); BASOPHILS % 0.6 % (0.0-2.0); EOSINOPHILS # 0.1 10^3/ul (0.0-0.5); EOSINOPHILS % 0.9 % (0.0-7.0); HEMATOCRIT 30.4 % (42.0-52.0); HEMOGLOBIN 10.8 g/dl (14.0-18.0); LYMPHOCYTES # 1.1 10^3/ul (0.8-2.9); LYMPHOCYTES % 10.9 % (15.0-51.0); MEAN CORPUSCULAR HEMOGLOBIN 31.1 pg (29.0-33.0); MEAN CORPUSCULAR HGB CONC 35.5 g/dl (32.0-37.0); MEAN CORPUSCULAR VOLUME 87.6 fl (82.0-101.0); MEAN PLATELET VOLUME 10.7 fl (7.4-10.4); MONOCYTE # 0.6 10^3/ul (0.3-0.9); NEUTROPHIL # 8.4 10^3/ul (1.6-7.5); PLATELET COUNT 258 10^3/UL (140-415); RED BLOOD COUNT 3.47 10^6/ul (4.70-6.10); RED CELL DISTRIBUTION WIDTH 12.5 % (11.5-14.5)
[2018-12-12] MEDS ORDERED: hydrOXYzine HCL 25 MG TAB PO (06:00)
[2018-12-12 06:42] LABS: ANION GAP 1 (5-13); BLOOD UREA NITROGEN 8 mg/dl (7-20); CALCIUM 6.5 mg/dl (8.4-10.2); CARBON DIOXIDE 15 mmol/L (21-31); CHLORIDE 125 mmol/L (97-110); CREATININE 0.37 mg/dl (0.61-1.24); Estimated GFR > 60 mL/min (>60); GLUCOSE 193 mg/dl (70-220); MAGNESIUM 1.5 mg/dl (1.7-2.5); PHOSPHORUS 1.6 mg/dl (2.5-4.9); SODIUM 141 mmol/L (135-144)
[2018-12-12 06:46] LABS: POTASSIUM 8.6 mmol/L (3.5-5.1)
[2018-12-12] MEDS ORDERED: ACCU-CHEK XX (07:30)
[2018-12-12 07:35] LABS: URIC ACID 2.4 mg/dl (3.1-7.9)
[2018-12-12] MEDS: INSULIN ASPART [NOVOLOG] 3 ML PEN SC ×4 (07:35→21:28)
[2018-12-12] MEDS ORDERED: GLUCAGON 1 MG INJ IM (08:00)
[2018-12-12] MEDS ORDERED: GLUCOSE GEL 15 GRAM TUBE BUCCAL (08:00)
[2018-12-12] MEDS ORDERED: GLUCOSE GEL 15 GRAM TUBE PO ×2 (08:00)
[2018-12-12] MEDS: INSULIN GLARGINE [LANTus] (100 UNITS/ML) SYG SC (08:30)
[2018-12-12] MEDS: ENOXAPARIN 40 MG/0.4 ML SYG SC (08:31)
[2018-12-12] MEDS: FAMOTIDINE 20 MG TAB PO (08:31)
[2018-12-12] MEDS: ACCU-CHEK XX ×4 (08:32→21:00)
[2018-12-12] MEDS: LORATADINE 10 MG TAB PO (08:33)
[2018-12-12] MEDS ORDERED: INSULIN HUMAN REGULAR 100 UNIT in SOD CHLORIDE 0.9% 99 ML IV (09:00)
[2018-12-12 09:44] LABS: MODE ROOM AIR; MetHgb Venous 0 %; Sample Type Blood venous; Site VENOUS LINE; Venous COHb 0.4 %; Venous COHb 0.7 %; Venous Fraction OxyHgb 72.3 %; Venous Fraction OxyHgb 90.3 %; Venous Oxygen Sat 72.8 mmHG (55.0-75.0); Venous Oxygen Sat 90.7 mmHG (55.0-75.0); Venous Total Hemglobin 12.9 g/dl
[2018-12-12 09:59] LABS: ANION GAP 7 (5-13); BLOOD UREA NITROGEN 8 mg/dl (7-20); CALCIUM 8.1 mg/dl (8.4-10.2); CARBON DIOXIDE 22 mmol/L (21-31); CHLORIDE 112 mmol/L (97-110); CREATININE 0.41 mg/dl (0.61-1.24); Estimated GFR > 60 mL/min (>60); GLUCOSE 141 mg/dl (70-220); MAGNESIUM 1.9 mg/dl (1.7-2.5); PHOSPHORUS 1.4 mg/dl (2.5-4.9); SODIUM 141 mmol/L (135-144)
[2018-12-12] MEDS: HYDROCODONE/APAP (5/325) TAB PO ×2 (13:42→23:09)
[2018-12-12 14:19] LABS: ANION GAP 7 (5-13); BLOOD UREA NITROGEN 8 mg/dl (7-20); CALCIUM 8.4 mg/dl (8.4-10.2); CARBON DIOXIDE 22 mmol/L (21-31); CHLORIDE 110 mmol/L (97-110); CREATININE 0.47 mg/dl (0.61-1.24); Estimated GFR > 60 mL/min (>60); GLUCOSE 178 mg/dl (70-220); MAGNESIUM 1.9 mg/dl (1.7-2.5); POTASSIUM 3.3 mmol/L (3.5-5.1); SODIUM 139 mmol/L (135-144)
[2018-12-12] MEDS: VANCOMYCIN 1 GM 250 ML IVPB (15:51)
[2018-12-12] MEDS: metFORMIN 500 MG TAB PO (18:44)
[2018-12-12 19:21] LABS: HEPATITIS B SURFACE ANTIGEN NEGATIVE (NEGATIVE)
[2018-12-12 19:38] LABS: HEPATITIS C VIRAL ANTIBODY NEGATIVE (NEGATIVE)
[2018-12-12] MEDS ORDERED: DEXTROSE 5%-0.45% NACL 1,000 ML IV (20:30)
[2018-12-12 20:45] LABS: HEPATITIS B SURFACE ANTIBODY POSITIVE (NEGATIVE)
[2018-12-12 21:30] LABS: ANION GAP 11 (5-13); BLOOD UREA NITROGEN 7 mg/dl (7-20); CALCIUM 8.3 mg/dl (8.4-10.2); CARBON DIOXIDE 20 mmol/L (21-31); CHLORIDE 105 mmol/L (97-110); CREATININE 0.57 mg/dl (0.61-1.24); Estimated GFR > 60 mL/min (>60); GLUCOSE 338 mg/dl (70-220); MAGNESIUM 1.9 mg/dl (1.7-2.5); PHOSPHORUS 2.4 mg/dl (2.5-4.9); POTASSIUM 3.7 mmol/L (3.5-5.1); SODIUM 136 mmol/L (135-144)
[2018-12-13] MEDS: DEXTROSE 5%-0.45% NACL 1,000 ML IV ×3 (00:33→15:08)
[2018-12-13] MEDS: INSULIN ASPART [NOVOLOG] 3 ML PEN SC ×6 (00:34→20:49)
[2018-12-13 01:13] LABS: ANION GAP 8 (5-13); BLOOD UREA NITROGEN 7 mg/dl (7-20); CALCIUM 8.3 mg/dl (8.4-10.2); CARBON DIOXIDE 22 mmol/L (21-31); CHLORIDE 105 mmol/L (97-110); CREATININE 0.43 mg/dl (0.61-1.24); Estimated GFR > 60 mL/min (>60); GLUCOSE 218 mg/dl (70-220); MAGNESIUM 1.8 mg/dl (1.7-2.5); PHOSPHORUS 2.6 mg/dl (2.5-4.9); SODIUM 135 mmol/L (135-144)
[2018-12-13] MEDS: IPRATROPIUM (NEB) 0.5 MG/2.5 ML AMP NEB ×6 (01:51→20:49)
[2018-12-13] MEDS: ALBUTEROL 0.083% (NEB) 2.5 MG/3 ML AMP NEB ×6 (01:51→20:49)
[2018-12-13] MEDS: ACCU-CHEK XX ×5 (02:00→20:49)
[2018-12-13] MEDS: VANCOMYCIN 1 GM 250 ML IVPB ×3 (02:59→22:54)
[2018-12-13] MEDS: POTASSIUM CHLORIDE (SR) 20 MEQ TAB PO (03:21)
[2018-12-13] MEDS: HYDROCODONE/APAP (5/325) TAB PO (06:44)
[2018-12-13 07:28] LABS: ADD MAN DIFF? NO
[2018-12-13] MEDS: NATEGLINIDE 60 MG TAB PO ×2 (07:30→11:21)
[2018-12-13 07:36] LABS: BASOPHIL # 0.1 10^3/ul (0.0-0.1); BASOPHILS % 0.7 % (0.0-2.0); EOSINOPHILS # 0.1 10^3/ul (0.0-0.5); EOSINOPHILS % 1.3 % (0.0-7.0); HEMOGLOBIN 13.2 g/dl (14.0-18.0); LYMPHOCYTES # 1.9 10^3/ul (0.8-2.9); LYMPHOCYTES % 18.3 % (15.0-51.0); MEAN CORPUSCULAR HEMOGLOBIN 30.8 pg (29.0-33.0); MEAN CORPUSCULAR HGB CONC 34.7 g/dl (32.0-37.0); MEAN CORPUSCULAR VOLUME 88.8 fl (82.0-101.0); MEAN PLATELET VOLUME 10.9 fl (7.4-10.4); MONOCYTE # 0.7 10^3/ul (0.3-0.9); MONOCYTES % 6.6 % (0.0-11.0); NEUTROPHIL # 7.4 10^3/ul (1.6-7.5); NEUTROPHILS % 72.4 % (39.0-77.0); PLATELET COUNT 324 10^3/UL (140-415); RED BLOOD COUNT 4.28 10^6/ul (4.70-6.10); RED CELL DISTRIBUTION WIDTH 12.9 % (11.5-14.5)
[2018-12-13 07:36] LABS: WHITE BLOOD COUNT 10.2 10^3/ul (4.8-10.8)
[2018-12-13 07:52] LABS: ANION GAP 15 (5-13); BLOOD UREA NITROGEN 4 mg/dl (7-20); CALCIUM 8.6 mg/dl (8.4-10.2); CARBON DIOXIDE 20 mmol/L (21-31); CHLORIDE 104 mmol/L (97-110); Estimated GFR > 60 mL/min (>60); GLUCOSE 230 mg/dl (70-220); MAGNESIUM 1.8 mg/dl (1.7-2.5); PHOSPHORUS 2.8 mg/dl (2.5-4.9); POTASSIUM 3.5 mmol/L (3.5-5.1); SODIUM 139 mmol/L (135-144)
[2018-12-13] MEDS: metFORMIN 500 MG TAB PO (07:57)
[2018-12-13] MEDS: ENOXAPARIN 40 MG/0.4 ML SYG SC (08:58)
[2018-12-13] MEDS: FAMOTIDINE 20 MG TAB PO (09:13)
[2018-12-13] MEDS: LORATADINE 10 MG TAB PO (09:13)
[2018-12-13 10:31] LABS: ANION GAP 12 (5-13); BLOOD UREA NITROGEN 4 mg/dl (7-20); CALCIUM 8.3 mg/dl (8.4-10.2); CARBON DIOXIDE 20 mmol/L (21-31); CHLORIDE 106 mmol/L (97-110); CREATININE 0.48 mg/dl (0.61-1.24); Estimated GFR > 60 mL/min (>60); GLUCOSE 241 mg/dl (70-220); MAGNESIUM 1.8 mg/dl (1.7-2.5); PHOSPHORUS 2.9 mg/dl (2.5-4.9); POTASSIUM 3.6 mmol/L (3.5-5.1); SODIUM 138 mmol/L (135-144)
[2018-12-13] MEDS: traMADol 50 MG TAB PO (11:18)
[2018-12-13] MEDS: morphine 2 MG INJ IV (12:37)
[2018-12-13 15:20] LABS: VANCOMYCIN,TROUGH < 5.0 ug/ml (10.0-20.0)
[2018-12-13 15:34] LABS: ANION GAP 12 (5-13); BLOOD UREA NITROGEN 3 mg/dl (7-20); CALCIUM 8.4 mg/dl (8.4-10.2); CARBON DIOXIDE 21 mmol/L (21-31); CHLORIDE 104 mmol/L (97-110); CREATININE 0.41 mg/dl (0.61-1.24); Estimated GFR > 60 mL/min (>60); GLUCOSE 194 mg/dl (70-220); MAGNESIUM 1.7 mg/dl (1.7-2.5); PHOSPHORUS 2.9 mg/dl (2.5-4.9); POTASSIUM 3.5 mmol/L (3.5-5.1); SODIUM 137 mmol/L (135-144)
[2018-12-13] MEDS: LACTATED RINGER'S 1,000 ML IV (16:06)
[2018-12-13] MEDS: NATEGLINIDE 120 MG TAB PO (16:50)
[2018-12-13] MEDS: metFORMIN 850 MG TAB PO (16:50)
[2018-12-13] MEDS ORDERED: BUPIVACAINE 0.5% (SDV) 30 ML INJ (18:18)
[2018-12-13] MEDS ORDERED: PROPOFOL 20 ML (18:31)
[2018-12-13] MEDS ORDERED: CEFAZOLIN 1 GM INJ (18:31)
[2018-12-13] MEDS ORDERED: MIDAZOLAM 1 MG/ML 2 ML INJ (18:32)
[2018-12-13] MEDS ORDERED: ROPIVACAINE 0.5 % 30 ML VIAL (18:32)
[2018-12-13] MEDS ORDERED: FENTAnyl 50 MCG/ML VIAL (18:32)
[2018-12-13] MEDS ORDERED: ONDANSETRON 4 MG INJ (18:54)
[2018-12-13] MEDS ORDERED: DEXAMETHASONE 4 MG/ML 5 ML INJ (18:54)
[2018-12-13] MEDS ORDERED: METOCLOPRAMIDE 10 MG INJ (18:54)
[2018-12-13] MEDS ORDERED: DIPHENHYDRAMINE 50 MG INJ IV (19:00)
[2018-12-13] MEDS ORDERED: OXYCODONE/ACETAMINOPHEN (5/325) TAB PO (19:00)
[2018-12-13] MEDS ORDERED: METOCLOPRAMIDE 10 MG INJ IV (19:00)
[2018-12-13] MEDS ORDERED: MEPERIDINE 25 MG INJ IV (19:00)
[2018-12-13] MEDS ORDERED: ONDANSETRON 4 MG INJ IV (19:00)
[2018-12-13] MEDS ORDERED: HYDROmorphONE 1 MG/5 ML IV SYRINGE IV ×3 (19:00)
[2018-12-13] MEDS ORDERED: EPHEDrine 25 MG/5 ML SYG IV (19:00)
[2018-12-13] MEDS ORDERED: LABETALOL HCL 20MG INJ IV (19:00)
[2018-12-13] MEDS ORDERED: hydrALAzine 20 MG INJ IV (19:00)
[2018-12-13] MEDS ORDERED: FENTAnyl 50 MCG/ML VIAL IV ×2 (19:00)
[2018-12-13] MEDS: FENTAnyl 50 MCG/ML VIAL IV (19:49)
[2018-12-13] MEDS: INSULIN GLARGINE [LANTus] (100 UNITS/ML) SYG SC (20:42)
[2018-12-13 22:58] LABS: ANION GAP 14 (5-13); BLOOD UREA NITROGEN 5 mg/dl (7-20); CALCIUM 8.4 mg/dl (8.4-10.2); CARBON DIOXIDE 18 mmol/L (21-31); CHLORIDE 103 mmol/L (97-110); CREATININE 0.48 mg/dl (0.61-1.24); Estimated GFR > 60 mL/min (>60); GLUCOSE 291 mg/dl (70-220); MAGNESIUM 1.7 mg/dl (1.7-2.5); PHOSPHORUS 3.5 mg/dl (2.5-4.9); POTASSIUM 4.1 mmol/L (3.5-5.1); SODIUM 135 mmol/L (135-144)
[2018-12-14 03:21] LABS: ADD MAN DIFF? NO
[2018-12-14 03:22] LABS: WHITE BLOOD COUNT 11.1 10^3/ul (4.8-10.8)
[2018-12-14 03:22] LABS: BASOPHILS % 0.3 % (0.0-2.0); HEMATOCRIT 36.4 % (42.0-52.0); HEMOGLOBIN 12.5 g/dl (14.0-18.0); LYMPHOCYTES # 0.7 10^3/ul (0.8-2.9); LYMPHOCYTES % 6.2 % (15.0-51.0); MEAN CORPUSCULAR HEMOGLOBIN 30.6 pg (29.0-33.0); MEAN CORPUSCULAR HGB CONC 34.3 g/dl (32.0-37.0); MEAN CORPUSCULAR VOLUME 89.2 fl (82.0-101.0); MEAN PLATELET VOLUME 10.4 fl (7.4-10.4); MONOCYTE # 0.1 10^3/ul (0.3-0.9); MONOCYTES % 0.9 % (0.0-11.0); NEUTROPHIL # 10.2 10^3/ul (1.6-7.5); PLATELET COUNT 322 10^3/UL (140-415); POSITIVE DIFF @See below; RED BLOOD COUNT 4.08 10^6/ul (4.70-6.10); RED CELL DISTRIBUTION WIDTH 12.8 % (11.5-14.5)
[2018-12-14 03:23] LABS: NEUTROPHILS % 91.9 % (39.0-77.0)
[2018-12-14] MEDS: IPRATROPIUM (NEB) 0.5 MG/2.5 ML AMP NEB ×6 (03:33→21:00)
[2018-12-14] MEDS: ALBUTEROL 0.083% (NEB) 2.5 MG/3 ML AMP NEB ×6 (03:33→21:00)
[2018-12-14 03:38] LABS: ANION GAP 17 (5-13); BLOOD UREA NITROGEN 12 mg/dl (7-20); CALCIUM 8.6 mg/dl (8.4-10.2); CARBON DIOXIDE 15 mmol/L (21-31); CHLORIDE 104 mmol/L (97-110); CREATININE 0.67 mg/dl (0.61-1.24); Estimated GFR > 60 mL/min (>60); GLUCOSE 291 mg/dl (70-220); MAGNESIUM 1.8 mg/dl (1.7-2.5); PHOSPHORUS 4.1 mg/dl (2.5-4.9); POTASSIUM 4.4 mmol/L (3.5-5.1); SODIUM 136 mmol/L (135-144)
[2018-12-14 04:09] LABS: BAND NEUTROPHILS #M 0.7 10^3/ul (0.0-0.6); BAND NEUTROPHILS % (M) 7 % (0-4); LYMPHOCYTES #M 1.1 10^3/ul (0.8-2.9); LYMPHOCYTES % (M) 10 % (15-51); MONOCYTE #M 0.1 10^3/ul (0.3-0.9); MONOCYTES % (M) 1 % (0-11); PLATELET ESTIMATE NORMAL; POLYCHROMASIA 3+ (0-0); SEG NEUT #M 9.2 10^3/ul (1.6-7.5); SEGMENTED NEUTROPHILS (M) % 82 % (39-77); SMUDGE%M 4 % (0-0)
[2018-12-14] MEDS: LACTATED RINGER'S 1,000 ML IV ×2 (04:21→15:41)
[2018-12-14] MEDS: VANCOMYCIN 1 GM 250 ML IVPB ×3 (06:07→23:25)
[2018-12-14] MEDS: ACCU-CHEK XX ×5 (07:30→23:00)
[2018-12-14] MEDS: metFORMIN 850 MG TAB PO ×2 (08:08→17:17)
[2018-12-14] MEDS: NATEGLINIDE 120 MG TAB PO ×3 (08:08→17:17)
[2018-12-14] MEDS: ENOXAPARIN 40 MG/0.4 ML SYG SC (08:10)
[2018-12-14] MEDS: INSULIN ASPART [NOVOLOG] 3 ML PEN SC ×5 (08:10→22:45)
[2018-12-14] MEDS: traMADol 50 MG TAB PO ×2 (10:07→15:39)
[2018-12-14] MEDS: HYDROCODONE/APAP (5/325) TAB PO (12:04)
[2018-12-14 14:37] LABS: VANCOMYCIN,TROUGH 10.1 ug/ml (10.0-20.0)
[2018-12-14] MEDS: INSULIN GLARGINE [LANTus] (100 UNITS/ML) SYG SC (21:48)
[2018-12-14] MEDS: ACETAMINOPHEN 650MG/20.3ML CUP PO (21:51)
[2018-12-15] MEDS: IPRATROPIUM (NEB) 0.5 MG/2.5 ML AMP NEB ×6 (01:00→21:00)
[2018-12-15] MEDS: ALBUTEROL 0.083% (NEB) 2.5 MG/3 ML AMP NEB ×6 (01:00→20:03)
[2018-12-15] MEDS: INSULIN ASPART [NOVOLOG] 3 ML PEN SC ×6 (02:35→21:14)
[2018-12-15] MEDS: ACCU-CHEK XX ×6 (04:47→21:46)
[2018-12-15] MEDS: HYDROCODONE/APAP (5/325) TAB PO ×2 (05:51→14:56)
[2018-12-15] MEDS: VANCOMYCIN 1 GM 250 ML IVPB (05:51)
[2018-12-15 06:24] LABS: ADD MAN DIFF? NO
[2018-12-15 06:25] LABS: WHITE BLOOD COUNT 6.5 10^3/ul (4.8-10.8)
[2018-12-15 06:25] LABS: BASOPHIL # 0.1 10^3/ul (0.0-0.1); BASOPHILS % 0.8 % (0.0-2.0); EOSINOPHILS # 0.1 10^3/ul (0.0-0.5); EOSINOPHILS % 1.4 % (0.0-7.0); HEMOGLOBIN 11.2 g/dl (14.0-18.0); LYMPHOCYTES # 1.5 10^3/ul (0.8-2.9); LYMPHOCYTES % 23.1 % (15.0-51.0); MEAN CORPUSCULAR VOLUME 88.6 fl (82.0-101.0); MEAN PLATELET VOLUME 10.1 fl (7.4-10.4); MONOCYTE # 0.4 10^3/ul (0.3-0.9); MONOCYTES % 6.2 % (0.0-11.0); NEUTROPHIL # 4.3 10^3/ul (1.6-7.5); NEUTROPHILS % 66.9 % (39.0-77.0); PLATELET COUNT 306 10^3/UL (140-415); RED BLOOD COUNT 3.61 10^6/ul (4.70-6.10); RED CELL DISTRIBUTION WIDTH 12.6 % (11.5-14.5)
[2018-12-15 06:50] LABS: BLOOD UREA NITROGEN 11 mg/dl (7-20)
[2018-12-15 06:50] LABS: CREATININE 0.47 mg/dl (0.61-1.24)
[2018-12-15] MEDS: metFORMIN 850 MG TAB PO (08:13)
[2018-12-15] MEDS: NATEGLINIDE 120 MG TAB PO ×3 (08:13→17:39)
[2018-12-15] MEDS: traMADol 50 MG TAB PO (08:15)
[2018-12-15] MEDS: ENOXAPARIN 40 MG/0.4 ML SYG SC (08:18)
[2018-12-15] MEDS: metFORMIN 500 MG TAB PO (17:39)
[2018-12-15] MEDS: INSULIN GLARGINE [LANTus] (100 UNITS/ML) SYG SC (21:45)
[2018-12-16] MEDS: IPRATROPIUM (NEB) 0.5 MG/2.5 ML AMP NEB ×5 (00:32→16:35)
[2018-12-16] MEDS: ALBUTEROL 0.083% (NEB) 2.5 MG/3 ML AMP NEB ×5 (00:32→16:35)
[2018-12-16] MEDS: HYDROCODONE/APAP (5/325) TAB PO ×2 (05:03→14:42)
[2018-12-16] MEDS: traMADol 50 MG TAB PO (05:03)
[2018-12-16] MEDS: ACCU-CHEK XX ×4 (07:30→17:31)
[2018-12-16] MEDS: INSULIN ASPART [NOVOLOG] 3 ML PEN SC ×4 (07:57→17:28)
[2018-12-16] MEDS: metFORMIN 500 MG TAB PO ×2 (07:58→17:29)
[2018-12-16] MEDS: NATEGLINIDE 120 MG TAB PO ×3 (07:58→17:28)
[2018-12-16] MEDS: ENOXAPARIN 40 MG/0.4 ML SYG SC (07:59)
[2018-12-16] MEDS: LINAGLIPTIN 5 MG TABLET PO (14:40)
== END 2018-12-16 18:37 | disposition home or self-care (01) | DRG 853 ==
LOC: E/R 21:51 → ICU 12-12 01:19 → PP2 12-12 13:21
PROC: 0JBN0ZZ Excision of Right Lower Leg Subcutaneous Tissue and Fascia, Open Approach (ICD-10-PCS; principal; 2018-12-13 15:30)
DX: A41.9 Sepsis, unspecified organism (principal); E11.10 Type 2 diabetes mellitus with ketoacidosis without coma; N17.9 Acute kidney failure, unspecified; E87.1 Hypo-osmolality and hyponatremia; L03.115 Cellulitis of right lower limb; L02.415 Cutaneous abscess of right lower limb; B95.61 Methicillin susceptible Staphylococcus aureus infection as the cause of diseases classified elsewhere; Z91.19 Patient's noncompliance with other medical treatment and regimen; Z79.4 Long term (current) use of insulin
CPT/HCPCS: 36415; 73562; 73700; 80048; 80053; 80202; 80307; 81003; 82565; 82803; 82962; 83036; 83690; 83735; 84100; 84443; 84520; 84560; 85025; 86706; 86708; 86803; 87040-91; 87070; 87075; 87081; 87102; 87340; 93970; 94640; 94664; 96374; 99285-25

== ENCOUNTER 2019-01-04 10:33 | Emergency (ER) | payer MEDICAID ==
[2019-01-04] MEDS: BACITRACIN 0.5%/ZINC 28.35 GM OINT TOP (11:20)
== END 2019-01-04 11:29 | disposition home or self-care (01) ==
LOC: FTE 11:29
DX: Z48.01 Encounter for change or removal of surgical wound dressing (principal); E11.9 Type 2 diabetes mellitus without complications; Z79.4 Long term (current) use of insulin
CPT/HCPCS: 99281; Z7610